=== PATIENT | male | born 1965 | race African-American/Black ===

== ENCOUNTER 2021-05-02 08:37 | Emergency (ER) | payer OTHER, SELFPAY ==
--- NOTE | ~2021-05-02 | CT_ITS ---
EXAMINATION: CT brain wo con INDICATION: Dysarthria COMPARISON: None TECHNIQUE: Standard unenhanced head CT. The dose-length product (DLP) was 605.33 mGy-cm. The mA was a djusted according to patient size. Iterative reconstruction technique was employed. FINDINGS: There is no intracranial hemorrhage, acute infarction, or abnormal mass lesion. The ventric les are normal. There is no abnormal mass effect or midline shift. The elias-white matter differentiat ion is normal. The basal cisterns are patent. The orbits are normal. The paranasal sinuses, mastoids and calvarium are normal. IMPRESSION: 1. No acute intracranial abnormality. Reviewed, dictated and finalized at location A. [facility] INTERN
--- NOTE | ~2021-05-02 | XR_ITS ---
EXAMINATION: XR chest 2V DATE: 05/02/2021 09:18 INDICATION: Slurred speech, stroke symptoms TECHNIQUE: AP and lateral views of the chest are obtained. COMPARISON: 07/18/2015 FINDINGS: The lungs are free of acute opacities. There is no pleural effusion or pneumothorax. The ca rdiomediastinal silhouette is normal. There is mild thoracic spondylosis. IMPRESSION: 1. No acute cardiopulmonary abnormality. Reviewed, dictated and finalized at location A. [facility] CLINICAL COORDINATOR
[2021-05-02 08:44] VITALS: PULSE 76; RESP 24
[2021-05-02 08:45] VITALS: BP 122/87; PULSE 76; RESP 16; RESP 18; TEMP 36.8; O2SAT 100; O2SAT 98
[2021-05-02 08:46] VITALS: BP 122/87; PULSE 77; RESP 24; O2SAT 97
--- NOTE | 2021-05-02 08:57 | ECG_ITS ---
Measurements Intervals [place] Rate: 77 P: -59 OR: 212 QRS: -13 QRSD: 97 T: -8 QT: 363 QTc: 411 Interpretive Statements SINUS RHYTHM WITH FIRST DEGREE AV BLOCK BORDERLINE ST-T WAVE ABNORMALITY- INFERIOR LEADS BASELINE ARTIFACT- I, II, III, AVR ABNORMAL ECG Electronically Signed On 05-02-2021 10:57:00 BUSINESS CONTINUITY CONSULTANT by Oracio Murguia D.O.
[2021-05-02 09:19] VITALS: PULSE 77; RESP 17; O2SAT 100
[2021-05-02 09:20] VITALS: BP 119/88; PULSE 78; RESP 24; O2SAT 100
[2021-05-02 09:29] LABS: Basophils Absolute Auto 0.1 K/mm3 (0.0-0.1); Basophils Percent Auto 0.8 % (0.2-1.2); Eosinophils Absolute Auto 0.1 K/mm3 (0-0.3); Eosinophils Percent Auto 2.3 % (0-4.4); Hematocrit 35.4 % (42.0-52.0); Hemoglobin 12.2 g/dL (14.0-18.0); Immature Granulocyte Absolute 0.01 K/mm3 (0.00-0.031); Immature Granulocyte Percent A 0.2 % (0-0.5); Lymphocytes Absolute Auto 2.87 K/mm3 (0.9-3.2); Lymphocytes Percent Auto 46.4 % (18.3-44.2); Mean Corpuscular HGB Conc 34.5 g/dl (32-36); Mean Corpuscular Hemoglobin 30.1 pg (26-34); Mean Corpuscular Volume 87.4 fl (80-100); Mean Platelet Volume 9.6 fl (7.4-10.4); Monocytes Absolute Auto 0.5 K/mm3 (0.1-0.6); Monocytes Percent Auto 8.6 % (2.6-8.5); Neutrophils Absolute Auto 2.6 K/mm3 (1.3-6.7); Neutrophils Percent Auto 41.7 % (45.5-73.1); Platelet Count Result 323 k/mm3 (150-375); Red Blood Count 4.05 M/mm3 (4.6-6.20); Red Cell Distribution Width 12.7 % (11.5-14.5); White Blood Count 6.2 K/mm3 (4.5-10.0)
[2021-05-02 09:44] LABS: Alanine Aminotransferase 21 U/L (4-50); Albumin Level 3.9 g/dL (3.5-5.1); Alkaline Phosphatase 77 U/L (38-126); Anion Gap 4 mmol/L (8-16); Aspartate Amino Transferase 33 U/L (17-59); Bilirubin,Total 0.5 mg/dL (0.2-1.3); Blood Urea Nitrogen 11 mg/dL (9-20); Calcium 8.8 mg/dL (8.4-10.2); Carbon Dioxide 30 mmol/L (22-30); Chloride 101 mmol/L (98-107); Estimated CRCL calculation 96 ml/min; Estimated Glomerular Filt Rate > 60; Glucose 122 mg/dL (65-110); Potassium 4.2 mmol/L (3.4-5.0); Sodium 135 mmol/L (137-145)
--- NOTE | 2021-05-02 10:38 | ED.GENADULT ---
HPI - General Adult General Chief complaint: Neuro Symptoms/Deficit Stated complaint: slurred speech Time Seen by Provider: 05/02/21 08:50 History of Present Illness HPI narrative: Patient is a 55-year-old male who presents ER with concerns for possible CVA. Reports for the last 2 months he has been having some mild dysarthria. Feels like he is slurring his speech at times. His mother made him concerned that he may have had an event came to the ER. No weakness or numbness to an arm or leg. No aggravating or alleviating factors. No history of previous CVA. Related Data Allergies Allergy/AdvReac Type Severity Reaction Status Date / Time lisinopril Allergy Unknown Anaphylactic Verified 05/02/21 08:51 Shock Review of Systems Review of Systems: All systems reviewed & are unremarkable except as noted in HPI and below Constitutional: Constitutional: Denies chills, Denies fever(s) and Denies weakness ENT: Denies dysphagia and Denies dizziness Comments: Dysarthria Cardiovascular: Cardiovascular: Denies chest pain, Denies rapid heart rate and Denies radiating jaw, neck or arm pain Respiratory: Respiratory: Denies cough and Denies dyspnea Gastrointestinal: Gastrointestinal: Denies abdominal pain, Denies nausea and Denies vomiting Neurologic: Denies dizziness, Denies syncope, Denies headache(s), Denies focal weakness and Denies numbness Comments: Dysarthria PMFSH Past Medical History Medical History (Updated 05/02/21 @ 10:43 by Benito Bello MD) Hypertension Surgical History Surgical History (Updated 05/02/21 @ 10:40 by Benito Bello MD) No pertinent past surgical history Family History Family History (Updated 12/02/17 @ 07:33 by DOCTOR UNKNOWN) Father Hypertension Mother Hypertension Social History Social History Smoking status: Current every day smoker Alcohol intake: current Exam Narrative: GENERAL: Well-appearing, well-nourished, and in no acute distress. HEAD: Normocephalic, atraumatic. EYES: PERRL and EOMI. ENT: Mucous membranes moist. CHEST: Clear to auscultation. No respiratory distress. HEART: Regular rate and rhythm. Normal peripheral pulses. ABDOMEN: Soft, nontender, nondistended. EXTREMITIES: Normal range of motion. No edema. SKIN: Warm, dry, no rash. NEURO: Nerves II through XII intact. Mild slurred speech. Ambulating normally. Alert and oriented x3. PSYCH: Normal mood and affect. Course Course Emergency Course: Informed of results. Recommend follow-up with his PCP [facility]. Recommend daily baby aspirin until then. Vital Signs Vital signs: Vital Signs Temperature 98.2 F 05/02/21 08:45 Pulse Rate 76 05/02/21 08:45 Respiratory Rate 16 05/02/21 08:45 Blood Pressure 122/87 05/02/21 08:45 Pulse Oximetry 98 05/02/21 08:45 Temperature 98.2 F 05/02/21 08:45 Pulse Rate 76 05/02/21 08:45 Respiratory Rate 16 05/02/21 08:45 Blood Pressure 122/87 05/02/21 08:45 Pulse Oximetry 98 05/02/21 08:45 Medical Decision Making Vital Signs Vital Signs: Vital Signs Temperature 98.2 F 05/02/21 08:45 Pulse Rate 76 05/02/21 08:45 Respiratory Rate 16 05/02/21 08:45 Blood Pressure 122/87 05/02/21 08:45 Pulse Oximetry 98 05/02/21 08:45 Temperature 98.2 F 05/02/21 08:45 Pulse Rate 76 05/02/21 08:45 Respiratory Rate 16 05/02/21 08:45 Blood Pressure 122/87 05/02/21 08:45 Pulse Oximetry 98 05/02/21 08:45 Lab Data Result diagrams: 05/02/21 09:05 05/02/21 09:05 Labs: Lab Results 05/02/21 05/02/21 Range/Units 09:05 09:05 WBC 6.2 (4.5-10.0) K/mm3 RBC 4.05 L (4.6-6.20) M/mm3 Hgb 12.2 L (14.0-18.0) g/dL Hct 35.4 L (42.0-52.0) % MCV 87.4 (80-100) fl MCH 30.1 (26-34) pg MCHC 34.5 (32-36) g/dl RDW 12.7 (11.5-14.5) % Plt Count 323 (150-375) k/mm3 MPV 9.6 (7.4-10.4) fl Immature Gran % (Auto) 0.2 (0-0.5) % Neut % (Auto)
[2021-05-02 11:01] VITALS: BP 129/92; PULSE 76; RESP 20; O2SAT 97
== END 2021-05-02 10:58 | disposition home or self-care (01) ==
PROVIDERS: Emergency Provider Emergency Medicine
DX: R47.1 Dysarthria and anarthria (principal); I10 Essential (primary) hypertension; F17.200 Nicotine dependence, unspecified, uncomplicated; I44.0 Atrioventricular block, first degree; R94.31 Abnormal electrocardiogram [ECG] [EKG]
CPT/HCPCS: 36415; 70450; 71046; 80053; 85025; 93005; 99284